=== PATIENT | male | born 1990 | race Caucasian/White ===

== ENCOUNTER 2018-01-15 03:36 | Emergency (ER) | payer BC ==
[2018-01-15 04:08] VITALS: O2SAT 98
[2018-01-15] MEDS ORDERED: Sodium Chloride 0.9% 1,000 ML IV STA (04:15)
[2018-01-15 04:29] LABS: BASO # 0.1 K/uL (0.0-0.2); BASO % 0.6 % (0.0-2.0); EOS # 0.1 K/uL (0.0-0.7); EOS % 0.6 % (0.0-4.0); HEMOGLOBIN 14.5 g/dL (12.0-18.0); LYMPH # 1.7 K/uL (1.0-4.3); LYMPH % 13.6 % (20.0-40.0); MEAN CELL VOLUME 87.1 fl (80.0-94.0); MEAN CORPUSCULAR HGB CONC 34.4 g/dL (33.0-37.0); MEAN PLATELET VOLUME 7.1 fl (7.2-11.7); MONO # 0.9 K/uL (0.0-0.8); NEUT # 9.6 K/uL (1.8-7.0); NEUT % 78.2 % (50.0-75.0); RBC 4.84 Mil/uL (4.40-5.90); WHITE BLOOD COUNT 12.2 K/uL (4.8-10.8)
[2018-01-15 04:38] LABS: BLOOD UREA NITROGEN 19 mg/dl (9-20); CALCIUM 9.4 mg/dL (8.4-10.2); GFR NON-AFRICAN AMERICAN > 60
--- NOTE | 2018-01-15 05:17 | ED PDOC ---
HPI: Male Pain Time Seen by Provider: 01/15/18 04:08 Chief Complaint (Nursing): Male Genitourinary Chief Complaint (Provider): Male Genitourinary History Per: Patient History/Exam Limitations: no limitations Onset/Duration Of Symptoms: Hrs (x1) Current Symptoms Are (Timing): Still Present Severity: Severe Quality Of Discomfort: "Pain" Associated Symptoms: Vomiting Additional Complaint(s): 27 year old male with no significant past medical history presents to the ED with sudden onset, severe, left sided testicular pain, left groin pain and left flank pain onset 1 hour. Patient reports he vomited several times and could not urinate but denies fever or any similar previous episode of pain. PMD: none Past Medical History Reviewed: Historical Data, Nursing Documentation, Vital Signs Vital Signs: Last Vital Signs Temp 98.6 F 01/15/18 03:52 Pulse 93 H 01/15/18 03:52 Resp 18 01/15/18 03:52 BP 152/94 H 01/15/18 03:52 Pulse Ox 98 01/15/18 03:52 - Medical History PMH: No Chronic Diseases - Surgical History Surgical History: No Surg Hx - Family History Family History: States: Unknown Family Hx - Home Medications Home Medications: Ambulatory Orders Medication Instructions Recorded Ciprofloxacin HCl [Cipro] 500 mg PO BID #14 tablet 01/15/18 Ketorolac Tromethamine [Toradol] 10 mg PO TID PRN #15 tab 01/15/18 Tamsulosin [Flomax] 0.4 mg PO DAILY #10 cap 01/15/18 - Allergies Allergies/Adverse Reactions: Allergies Allergy/AdvReac Type Severity Reaction Status Date / Time No Known Allergies Allergy Verified 01/15/18 04:05 Review of Systems ROS Statement: Except As Marked, All Systems Reviewed And Found Negative Gastrointestinal: Positive for: Vomiting Genitourinary Male: Positive for: Other (left flank, testicular and groin pain ) Physical Exam - Reviewed Nursing Documentation Reviewed: Yes Vital Signs Reviewed: Yes - Physical Exam Appears: Positive for: Non-toxic, Uncomfortable, In Acute Distress Head Exam: Positive for: ATRAUMATIC, NORMOCEPHALIC Skin: Positive for: Normal Color, Warm, Dry Eye Exam: Positive for: Normal appearance, EOMI, PERRL ENT: Positive for: Normal ENT Inspection Cardiovascular/Chest: Positive for: Regular Rate, Rhythm. Negative for: Murmur Respiratory: Positive for: Normal Breath Sounds. 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: Scrotum and testicles appear normal, no swelling, no redness, appear to be in lyed position ) Back: Positive for: L CVA Tenderness Extremity: Positive for: Normal ROM Neurologic/Psych: Positive for: Alert, Oriented - Laboratory Results Result Diagrams: 01/15/18 04:20 01/15/18 04:20 - ECG O2 Sat by Pulse Oximetry: 98 (RA) Pulse Ox Interpretation: Normal - Progress Re-evaluation Time: 06:00 Condition: Re-examined, Improved Medical Decision Making Medical Decision Making: Time: 0415 Initial Impression: Testicular pain, flank pain and groin pain Differential diagnoses include but are not limited to: Testicular torsion, renal colic and nephrolithiasis Initial Plan: --CT abdomen and pelvis --BMP --Dipstick --CBC with differentials --Morphine 2 mg IVP --Toradol 30 mg IVP --Zofran 4 mg IV --US testicular called immediately on arrival Time: 0551 CT abdomen and pelvis: Impression: --2mm calculus is noted in the proximal left ureter producing mild hydroureteronephrosis. --2 mm non-obstructing calculus is present in the mid pole of the left kidney. Time: 0555 US testicular Impression: --No acute abnormality evident on sonographic examination of the scrotum. Scribe Attestation: Documented by Page Eastman, acting as a scribe for Nadir Leon MD Provider Scribe Attestation: All medical record entries made by the Scribe were at my direction and personally dictated by me. I have reviewed the chart and agree that the record accurately reflects my personal performance of the history, physical exam, medical decision making, and the department course for this patient. I have also personally directed, reviewed, and agree with the discharge instructions and disposition. Disposition - Clinical Impression Clinical Impression: Renal colic on left side, Ureteral stone - Patient ED Disposition Is Patient to be Admitted: No Doctor Will See Patient In The: Office Counseled Patient/Family Regarding: Studies Performed, Diagnosis, Need For Followup - Disposition Referrals: Dunia Taylor MD [Medical Doctor] - Disposition: Routine/Home Disposition Time: 06:00 Condition: GOOD Additional Instructions: ISSAC FAITH, thank you for letting us take care of you today. Your provider was Nadir Leon MD and you were treated for MALE GENITOURINARY. The emergency medical care you received today was directed at your acute symptoms. If you were prescribed any medication, please fill it and take as directed. It may take several days for your symptoms to resolve. Return to the E mergency Department if your symptoms worsen, do not improve, or if you have any other problems. Please contact your doctor or call one of the physicians/clinics you have been referred to that are listed on the Patient Visit Information form that is included in your discharge packet. Bring any paperwork you were given at discharge with you along with any medications you are taking to your follow up visit. Our treatment cannot replace ongoing medical care by a primary care provider outside of the emergency department. Thank you for allowing the [facility] team to be part of your care today. If you had an X-Ray or CT scan: A Radiologist will review the ED reading if any change in treatment is needed we will contact you. If you had a blood, urine, or wound culture: It will take several days for the results, if any change in treatment is needed we will contact you. If you had an STI test: It will take 48 hours for the results. Please call after 1 week if you have not heard back. Prescriptions: Ciprofloxacin HCl [Cipro] 500 mg PO BID #14 tablet Ketorolac Tromethamine [Toradol] 10 mg PO TID PRN #15 tab PRN Reason: Pain, Moderate (4-7) Tamsulosin [Flomax] 0.4 mg PO DAILY #10 cap Instructions: Renal Colic
[2018-01-15 07:36] VITALS: BP 126/60; PULSE 69; RESP 16; TEMP 98.1
--- NOTE | 2018-01-15 12:41 | CT ---
Date of service: 01/15/2018 PROCEDURE: CT Abdomen and Pelvis without intravenous contrast HISTORY: left flank pain left groin pain COMPARISON: None. TECHNIQUE: Axial and reformatted coronal and sagittal CT images of the abdomen and pelvis were obtained without IV or oral contrast administration.. Contrast dose: 0 Radiation dose: Total exam DLP = 196.98 mGy-cm. This CT exam was performed using one or more of the following dose reduction techniques: Automated exposure control, adjustment of the mA and/or kV according to patient size, and/or use of iterative reconstruction technique. FINDINGS: LOWER THORAX: Unremarkable. LIVER: Unremarkable. No gross lesion or ductal dilatation. GALLBLADDER AND BILE DUCTS: Unremarkable. PANCREAS: Unremarkable. No gross lesion or ductal dilatation. SPLEEN: Unremarkable. ADRENALS: Unremarkable. No mass. KIDNEYS AND URETERS: There is mild the left hydronephrosis and proximal hydroureter up to 2-3 millimeter calculus at the proximal left ureter. There is a 3 millimeter nonobstructing calculus at the midpole of the left kidney. No evidence of right renal stone or hydronephrosis. VASCULATURE: Unremarkable. No aortic aneurysm. BOWEL: Unremarkable. No obstruction. No gross mural thickening. APPENDIX: Unremarkable. Normal appendix. PERITONEUM: Unremarkable. No free fluid. No free air. LYMPH NODES: Unremarkable. No enlarged lymph nodes. BLADDER: Unremarkable. REPRODUCTIVE: Unremarkable. BONES: No acute fracture. OTHER FINDINGS: None. IMPRESSION: Mild left hydronephrosis and proximal hydroureter up to to the 3 millimeter calcaneus at the proximal left ureter. 3 millimeter nonobstructing calculus at the midpole of the left kidney. The preliminary findings for this examination were reported by [facility] at {5:51 a.m.} on {01/15/2018} there is discordance of this report with the preliminary findings.
--- NOTE | 2018-01-15 13:38 | US ---
Date of service: 01/15/2018 HISTORY: left testicular pain left back pain TECHNIQUE: Realtime sonography through the scrotum with color and doppler flow. COMPARISON: None Available. FINDINGS: RIGHT TESTICLE: Measures 5.4 x 3.6 x 2.2 cm. Normal echotexture and flow. RIGHT EPIDIDYMIS: Epididymal head measures 1 x 0.7 x 0.6 cm. Grossly unremarkable appearance with normal flow. LEFT TESTICLE: Measures 5 x 3 x 2.1 cm. Normal echotexture and flow. LEFT EPIDIDYMIS: Epididymal head measures 1 x 0.7 x 0.97 cm. Grossly unremarkable appearance with normal flow. HYDROCELE: None. VARICOCELE: None. OTHER FINDINGS: None. IMPRESSION: No evidence of testicular torsion or testicular mass at the time of this examination. No evidence of acute abnormality in the scrotum. Preliminary report was submitted by [facility] contains concordance findings.
== END 2018-01-15 07:36 | disposition home or self-care (01) ==
LOC: H.ER 03:36
DX: N23 Unspecified renal colic (principal); N20.1 Calculus of ureter
CPT/HCPCS: 74176; 80048; 85025; 93975; 96361; 96374; 96375; 99284; J1885; J2270; J2405; J7030